=== PATIENT | female | born 1995 | race Hispanic/Latino ===

== ENCOUNTER 2019-03-09 21:26 | Emergency (ER) | payer SELFPAY ==
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
[2019-03-09] MEDS ORDERED: HYDROcodone/Acetaminophen 5/325 mg Tablet ONE (22:31)
[2019-03-09] MEDS ORDERED: Ibuprofen 600 MG TAB ONE (22:32)
[2019-03-09] MEDS ORDERED: Acetaminophen 325 MG TAB ONE (22:32)
[2019-03-09 23:04] LABS: Pregnancy Test - Urine (BHCG) Negative (Negative); Specific Gravity 1.022 (1.002-1.036)
[2019-03-09 23:05] LABS: Pregu Control Background? CLEAR/WHITE (CLR/WHITE); Pregu Control Bar Appear? YES (CONTROL BAR)
[2019-03-10] MEDS ORDERED: Bacitracin 1 PK ONE (01:18)
== END 2019-03-10 01:28 | disposition home or self-care (01) ==
LOC: MADERS 21:26
DX: S50.12XA Contusion of left forearm, initial encounter (principal); S20.319A Abrasion of unspecified front wall of thorax, initial encounter; S70.12XA Contusion of left thigh, initial encounter; V89.2XXA Person injured in unspecified motor-vehicle accident, traffic, initial encounter
CPT/HCPCS: 81025